=== PATIENT | female | born 1990 | race Caucasian/White ===

== ENCOUNTER 2025-02-08 08:07 | Outpatient (CLI) | payer MEDICAID ==
--- NOTE | 2025-02-08 09:53 | RADIOLOGY REPORT ---
Exam: US ULTRASOUND OF ABDOMEN Date: 02/08/2025 09:12 AM Clinical History: UMBILICAL HERNIA WITHOUT OBSTRUCTION OR GANGRENE Comparison: None Findings: Targeted sonographic evaluation of the soft tissues of the umbilical was obtained utilizing grayscal e and color Doppler imaging. There is no evidence for drainable collection. There is no evidence for solid or cystic mass in the site. No vascular abnormalities identified at this site. IMPRESSION: No definite sonographic abnormality is identified in the soft tissues of the umilicus END IMPRESSION:
== END 2025-02-08 23:59 | disposition home or self-care (01) ==
LOC: RAD 08:07
PROVIDERS: ATTEND Student in an Organized Health Care Education/Training Program
DX: K42.9 Umbilical hernia without obstruction or gangrene (principal)
CPT/HCPCS: 76705